=== PATIENT | female | born 1940 | race Caucasian/White ===

== ENCOUNTER 2021-03-07 19:14 | Emergency (ER) | payer MEDICARE, OTHER ==
[2016-06-20 16:08] VITALS: BP 147/79
[~2021-03-07] VITALS: Ht 160 cm; Wt 55.0 kg
[2021-03-07] MEDS: ACETAMINOPHEN 325 MG TABLET. PO ONE (20:34)
--- NOTE | 2021-03-07 20:37 | PHYS DOC ---
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 Patient denies LOC or any blood thinners. She states that her whole body is just stiff from the fall. Patient was able to walk to the car. Patient rates her overall pain a 7 out of 10. She is asking for some Tylenol. Patient denies dizziness, headache, vision changes, numbness or tingling, joint pain, focal weakness, chest pain, shortness of air, abdominal pain, nausea, vomiting. She denies any current back pain or neck pain. Patient has a history of hysterectomy, tonsillectomy, tonsillar cancer, high cholesterol, hypertension, CAD, breast cancer, cholecystectomy, lumbar spinal fracture. 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 [] Eyes: Denies change in visual acuity. [] HENT: Denies nasal congestion or sore throat. [] Respiratory: Denies cough or shortness of breath. [] Cardiovascular: Denies chest pain or edema. [] GI: Denies abdominal pain, nausea, vomiting, bloody stools or diarrhea. [] : Denies dysuria. [] Musculoskeletal: Denies back pain or joint pain. + Generalized body aching [] Integument: Denies rash. +hematoma to back of head [] Neurologic: Denies headache, focal weakness or sensory changes. [] Endocrine: Denies polyuria or polydipsia. [] Lymphatic: Denies swollen glands. [] Psychiatric: Denies depression or anxiety. [] (NGA MARCELO APRN) Heart Score: C/O Chest Pain: No Risk Factors: Risk Factors: DM, Current or recent (<one month) smoker, HTN, HLP, family history of CAD, obesity. Risk Scores: Score 0 - 3: 2.5% MACE over next 6 weeks - Discharge Home Score 4 - 6: 20.3% MACE over next 6 weeks - Admit for Clinical Observation Score 7 - 10: 72.7% MACE over next 6 weeks - Early Invasive Strategies (NGA MARCELO APRN) Current Medications: Current Medications Medications (Trade) Dose Ordered Sig/[place] Start Time Stop Time Status Last Admin Dose Admin Acetaminophen (Tylenol) 650 mg 1X ONCE 03/07/21 20:30 03/07/21 20:31 DC (NGA MARCELO APRN) Allergies: Allergies: Allergies Coded Allergies Type Severity Reaction Last Updated Verified No Known Drug Allergies 06/18/16 No (NGA MARCELO APRN) Physical Exam: PE: Constitutional: Well developed, well nourished, no acute distress, non-toxic appearance. [] HENT: Normocephalic, atraumatic, bilateral external ears normal, oropharynx moist, no oral exudates, nose normal. [] Eyes: PERRLA, EOMI, conjunctiva normal, no discharge. [] Neck: Normal range of motion, no tenderness, supple, no stridor. [] Cardiovascular:Heart rate regular rhythm, no murmur [] Lungs & Thorax: Bilateral breath sounds clear to auscultation [] Abdomen: Bowel sounds normal, soft, no tenderness, no masses, no pulsatile masses. [] Skin: Warm, dry, no erythema, no rash. Egg sized hematoma to the back of your head [] Back: Cervical, thoracic and lumbar tenderness, no CVA tenderness. [] Extremities: No tenderness, no cyanosis, no clubbing, ROM intact, no edema. [] Neurologic: Alert and oriented X 3, normal motor function, normal sensory function, no focal deficits noted. [] Psychologic: Affect normal, judgement normal, mood normal. [] (NGA MARCELO APRN) EKG: EKG: [] (NGA MARCELO APRN) Radiology/Procedures: Radiology/Procedures: [] Impression: [facility] [address] [place] [address] IMAGING REPORT Signed PATIENT: SELENE CURTIS ACCOUNT: [id number] : 1940 LOCATION: ER AGE: 80 SEX: F EXAM STATUS: REG ER ORD. PHYSICIAN: NAG MARCELO APRN REASON: FALL, PAIN, TENDERNESS TO SPINE, HEMATOMA TO HEAD PROCEDURE: CT LUMBAR SPINE WO CONTRAST Exam: CT head, cervical spine, thoracic spine and lumbar spine INDICATION: Fall, pain, tenderness to spine, hematoma to head TECHNIQUE: Sequential axial images through the head, cervical spine, thoracic spine and lumbar spine were obtained without the administration of IV contrast. Comparisons: None FINDINGS: Head: No focal parenchymal lesion or hemorrhage is identified. There is no midline shift or sulcal effacement. No acute vascular territory infarction is identified. Trejo-white distinction is preserved. The ventricular system is within normal limits without compression hydrocephalus. The basal cisterns are well maintained. Extra soft tissue scalp contusion/hematoma overlying the right occipital region. The visualized portions of the paranasal sinuses and mastoid air cells are well-pneumatized. No acute fractures. Cervical spine: Vertebral body heights are well-maintained. Grade 1 anterolisthesis of C4 on C5 and C5 on C6. Fracture to the cervical spine is not identified. Multilevel spondylotic change in cervical spine with degenerative disc disease greatest at C3-C4 and C4-C5. Mild bilateral facet arthropathy is noted in the cervical spine. Visualized paraspinal soft tissues are unremarkable. Thoracic spine: Vertebral body heights and alignment are well-maintained. Fracture through the thoracic spine is not identified. No significant spondylotic change in the thoracic spine. Visualized paraspinal soft tissues are unremarkable. Lumbar spine: There is mild compression deformity involving the superior endplate of L2. Less than 25% height loss. Vertebral body heights are otherwise well-maintained. Vertebral body alignment is well maintained. Displaced fracture to the lumbar spine is is not identified. Mild spondylotic changes lumbar spine with degenerative disc disease greatest at L3-L4 and L5-S1. Bilateral facet arthropathy is also noted. Visualized paraspinal soft tissues are unremarkable. IMPRESSION: 1. Extra soft tissue scalp contusion/hematoma overlying the occipital region without underlying osseous or intracranial abnormality. 2. Negative CT C-spine for acute traumatic injury. 3. Negative CT T spine for acute traumatic injury. 4. Mild compression deformity involving the superior endplate of L2 with less than 25% height loss, age indeterminant. Correlate with point tenderness. Exposure: One or more of the following in the visualized dose reduction techniques were utilized for this examination: 1. Automated exposure control 2. Adjustment of the MA and/or KV according to patient size Use of iterative of reconstructive technique Electronically signed by: Yo Cortez MD (03/07/2021 10:00 PM) [facility] DICTATED and SIGNED BY: YO CORTEZ MD DATE: 03/07/21 [id number] (NGA MARCELO APRN) Course & Med Decision Making: Course & Med Decision Making Pertinent Labs and Imaging studies reviewed. (See chart for details) See HPI. Alert and oriented x4. Ambulatory with a steady gait but with help of daughter. Skin pink warm and dry. Cervical, thoracic and lumbar focal bony spinal tenderness. Full range of motion of her neck. No pelvic pain with pelvic rock. No deformity to the hips or shortening of the legs. No tenderness to her hips. No deformity to the spine is seen and there is no bruising or sw elling to the spine. No abrasions or lacerations to the patient's body. She is moving all of her extremities and all joints. No joint deformities or swellings. Patient has no other complaint besides generalized body stiffness from falling and back of her head pain from the hematoma. She states only reason she came in was because of the hematoma to the back of her head. Speaks in full clear sentences. CT showed no acute findings. Patient is discharged home. [] (NGA MARCELO APRN) Dragon Disclaimer: Dragon Disclaimer: This electronic medical record was generated, in whole or in part, using a voice recognition dictation system. (NGA MARCELO APRN) Departure Departure Impression: Primary Impression: Hematoma of occipital surface of head Qualified Codes: S00.83XA - Contusion of other part of head, initial encounter Additional Impressions: Cervical pain (neck) Fall Qualified Codes: W19.XXXA - Unspecified fall, initial encounter Generalized body aches Disposition: 01 DC HOME SELF CARE/HOMELESS Condition: STABLE Referrals: NO PCP (PCP) Patient Instructions: Back Pain, Adult, Cervical Sprain, Fall Prevention and Home Safety, Head Injury, Adult, Hematoma Additional Instructions: Follow up with primary care as soon as possible. Use ice or heat to help with pain. Take Tylenol for your pain. If you get a severe headache with vomiting or have dizziness, return the ED. Attending Signature Attending Signature I have reviewed the PA/SCHEDULE CLERK's note and plan of care. I was available for consultation as needed during the patient's visit in the emergency department. I agree with the clinical impression, plan, and disposition. (BRUNA TOVAR DO) NGA MARCELO CARROTING MACHINE OPERATOR Mar 07, 2021 20:37 BRUNA TOVAR DO Mar 08, 2021 01:36
--- NOTE | 2021-03-07 22:03 | RAD ---
Exam: CT head, cervical spine, thoracic spine and lumbar spine INDICATION: Fall, pain, tenderness to spine, hematoma to head TECHNIQUE: Sequential axial images through the head, cervical spine, thoracic spine and lumbar spine were obtained without the administration of IV contrast. Comparisons: None FINDINGS: Head: No focal parenchymal lesion or hemorrhage is identified. There is no midline shift or sulcal effaceme nt. No acute vascular territory infarction is identified. Trejo-white distinction is preserved. The ventricular system is within normal limits without compression hydrocephalus. The basal cisterns are well maintained. Extra soft tissue scalp contusion/hematoma overlying the right occipital region. The visualized porti ons of the paranasal sinuses and mastoid air cells are well-pneumatized. No acute fractures. Cervical spine: Vertebral body heights are well-maintained. Grade 1 anterolisthesis of C4 on C5 and C5 on C6. Fracture to the cervical spine is not identified. Multilevel spondylotic change in cervical spine with degenerative disc disease greatest at C3-C4 and C4-C5. Mild bilateral facet arthropathy is noted in the cervical spine. Visualized paraspinal soft tissues are unremarkable. Thoracic spine: Vertebral body heights and alignment are well-maintained. Fracture through the thoracic spine is not identified. No significant spondylotic change in the thoracic spine. Visualized paraspinal soft tissues are unremarkable. Lumbar spine: There is mild compression deformity involving the superior endplate of L2. Less than 25% height loss. Vertebral body heights are otherwise well-maintained. Vertebral body alignment is well maintained. Displaced fracture to the lumbar spine is is not identified. Mild spondylotic changes lumbar spine with degenerative disc disease greatest at L3-L4 and L5-S1. Jayy ateral facet arthropathy is also noted. Visualized paraspinal soft tissues are unremarkable. IMPRESSION: 1. Extra soft tissue scalp contusion/hematoma overlying the occipital region without underlying osse ous or intracranial abnormality. 2. Negative CT C-spine for acute traumatic injury. 3. Negative CT T spine for acute traumatic injury. 4. Mild compression deformity involving the superior endplate of L2 with less than 25% height loss, age indeterminant. Correlate with point tenderness. Exposure: One or more of the following in the visualized dose reduction techniques were utilized for this examination: 1. Automated exposure control 2. Adjustment of the MA and/or KV according to patient size Use of iterative of reconstructive technique Electronically signed by: Yo Oliver MD (03/07/2021 10:00 PM) [facility]
== END 2021-03-07 22:34 | disposition home or self-care (01) ==
LOC: ER 19:14
DX: S00.83XA Contusion of other part of head, initial encounter (principal); M54.2 Cervicalgia; I11.9 Hypertensive heart disease without heart failure; E78.00 Pure hypercholesterolemia, unspecified; Z85.9 Personal history of malignant neoplasm, unspecified; Z90.710 Acquired absence of both cervix and uterus; Z90.49 Acquired absence of other specified parts of digestive tract; Z98.890 Other specified postprocedural states; W01.0XXA Fall on same level from slipping, tripping and stumbling without subsequent striking against object, initial encounter; Y93.89 Activity, other specified; Y92.89 Other specified places as the place of occurrence of the external cause; Y99.8 Other external cause status
CPT/HCPCS: 70450; 72125; 72128; 72131; 99285